=== PATIENT | female | born 2000 | race African-American/Black ===

== ENCOUNTER 2021-09-17 10:41 | Outpatient (CLI) | payer OTHER, SELFPAY ==
--- NOTE | ~2021-09-17 | XR_ITS ---
EXAMINATION: XR abdomen obstructive series DATE: 09/17/2021 11:09 INDICATION: 3 years of chronic burning sensation in the stomach and chest TECHNIQUE: Frontal supine and upright views of the abdomen were obtained. COMPARISON: None. FINDINGS: Moderate amount of gas and stool scattered throughout the colon. No dilated gas-filled loops of bowel to suggest obstruction. No free intraperitoneal gas. Visualized lung bases are clear. Mild lumbar levocurvature. IMPRESSION: 1. Normal bowel gas pattern with no free intraperitoneal gas or dilated gas-filled loops of bowel to suggest obstruction. Reviewed, dictated and finalized at location B. IMPRESSION: 1. Normal bowel gas pattern with no free intraperitoneal gas or dilated gas-fi lled loops of bowel to suggest obstruction.
--- NOTE | ~2021-09-17 | XR_ITS ---
EXAMINATION: XR chest 2V DATE: 09/17/2021 11:09 INDICATION: 3 years of chronic burning sensation in stomach and chest TECHNIQUE: PA and lateral views of the chest were obtained. COMPARISON: None FINDINGS: The lungs are clear with no focal airspace opacities, pulmonary edema, pleural effusion or pneumothor ax. The cardiomediastinal silhouette is normal. Mild thoracolumbar dextrocurvature. IMPRESSION: 1. No acute cardiopulmonary disease. Reviewed, dictated and finalized at location B.
== END 2021-09-17 10:42 | disposition home or self-care (01) ==
PROVIDERS: Visit Provider Nurse Practitioner Adult Health
DX: R10.0 Acute abdomen (principal)
CPT/HCPCS: 71046; 74019

== ENCOUNTER 2025-02-02 15:34 | Outpatient (CLI) | payer OTHER, SELFPAY ==
--- OUTSIDE RECORDS SUMMARY | 2009-04-15 02:30 | XMS_ITS | Continuity of Care Document ---
Author Organization [facility] Address [address] [place] [address] Phone Care Team Providers Care Clinical Specialist Name Role Phone Brito OD, Gage Unavailable Unavailable Procedures Procedure Date Eye Exam & Treatment Refraction Eye Exam & Treatment Refraction Eye Exam & Treatment No Charge Glasses Check Eye Exam, New Patient Advance Directives Directive Yes / No Effective Date File Name No Information Encounters Encounter Description Practice Location Reason(s) For Visit Diagnoses Date Provider Providers Copied on Encounter [facility], [address] [place] [address] [address], [place], [place], [id number], [place] tel:[phone] [facility] [place] No Information 6-201 0 Brito OD Gage. [address] [facility] , [address], [place], [address], [place]. tel:[phone] [facility], [address] [place] [address] [address], [place], [place], [id number], [place] tel:[phone] SEC [facility] No Information 6-200 9 Brito OD Gage. [address] [facility] , [address], [place], [address], [place]. tel:[phone] [facility], [address] [place] [address] [address], [place], [place], [id number], [place] tel:[phone] [facility] [place] No Information 5-200 8 Brito OD Gage. [facility] , [address], [place], [place], [facility], . tel:[phone] [facility], [address], [place], [place], [id number], tel:[phone] [facility] No Information 0-200 7 Brito OD Gage. [facility] , [address], [place], [address], . tel:[phone] [facility], [address], [place], [place], [id number], tel:[phone] [facility] No Information 7-200 7 Brito OD Gage. [address] [place] [address] , [address], [place], [address], . tel:[phone] Family History Family Member Type Diagnosis Age At Onset No Information Payers Payer name Insurance type Covered alliance party ID Authoriza tiyoni(s) Medicaid [facility] [id number] Social History Type Description Quantity Date Captured Comments Sex Female Smoking Status No Information Chief Complaint And Reason For Visit No Information Reason For Referral Reason For Referral No Information History Of Present Illness Encounter Date Complaint History Of Prese nt Illness No Information Functional Status Date Functional Assessmen t No Information Instructions Date Instruction Additional Infor mation No Information Assessments Type Assessment Date No Information Patient Care Teams Name Effective Dates (start - stop) Status Members No Information
--- NOTE | ~2025-02-02 | XR_ITS ---
EXAMINATION: XR_KNEE1-2VLT_CR, 02/02/2025 15:47 PHYSICIAN PRACTICE MANAGER HISTORY: pain in knees X 6 MONTHS COMPARISON: No comparisons available. Findings: No acute fracture or malalignment. No significant degenerative changes. Soft tissues unremarkable. Impression: No acute fracture or malalignment. Reviewed, dictated and finalized at location P. ICIAN PRACTICE MANAGER Impression: No acute fracture or malalignment.
--- NOTE | ~2025-02-02 | XR_ITS ---
EXAMINATION: XR_KNEE1-2VRT_CR, 02/02/2025 15:47 TORCH SOLDERER HISTORY: pain in knees COMPARISON: No comparisons available. Findings: No acute fracture or malalignment. No significant degenerative changes. Soft tissues unremarkable. Impression: No acute fracture or malalignment. Reviewed, dictated and finalized at location P. H SOLDERER Impression: No acute fracture or malalignment.
--- OUTSIDE RECORDS SUMMARY | 2025-02-03 14:59 | XMS_ITS | Clinical Summary ---
Author Organization [facility] Address [address] [facility] [place] [address] Care Team Providers Care Sales Hunter Name Role Phone Unavailable Primary Care Provider Unavailabl e Source Comments [facility],non-owned Affiliates and Associated Physician Practices is amultiple site organization consisting of ambulatory clinics and hospital sitesin [place], [place], [place] and [place]. This disclosure is being madepursuant to the Care Everywhere program and may not contain all information available regarding this patient. Last updated 17.[facility] Allergies No known active allergies Medications * Be aware that medications may not be up to date on this document. Alwaysverify current medications with the patient. methylphenidate CR (CONCERTA) 54 MG tablet Take 54 mg by mouth every morning. Active Active Problems Problem Noted Date Diagnosed Date Acquired pes planus of both feet 10/08/2010 Overview (08/22/2014): Closed fracture of part of humerus 09/01/2009 Overview (12/29/2014): Social History Tobacco Use Types Packs/Day Years Used Date Smoking Tobacco: Passive Smo ke Exposure - Never Smoker Smokeless Tobacco: Never Alcohol Use Standard Drinks/Week Comments No 0 (1 standard drink = 0.6 oz pur e alcohol) Comments No Sex and Gender Information Value Date Recorded Sex Assigned at Not on file Legal Sex Female 5:45 AM CHILD NUTRITION DIRECTOR Gender Identity Not on file Sexual Orientation Not on file Last Filed Vital Signs Vital Sign Reading Time Taken Comments Blood Pressure 102/76 03/02/2018 10:10 PM CHILD NUTRITION DIRECTOR Pulse 72 03/02/2018 10:10 PM CHILD NUTRITION DIRECTOR Temperature 36.8 C (98.3 F) 03/02/2018 10:10 PM CHILD NUTRITION DIRECTOR Respiratory Rate 18 03/02/2018 10:10 PM CHILD NUTRITION DIRECTOR Oxygen Saturation - - Inhaled Oxygen Concentration - - Weight - - Height - - Body Mass Index - - Plan of Treatment Health Maintenance Due Date Last Done Comments HIV SCREENING 2015 HPV VACCINE (1 - 3-dose series) 2015 CHLAMYDIA/GONORRHEA SCREENING 2016 HEPATITIS C SCREENING 02/25/2018 DTAP/TDAP/TD VACCINES (1 - Tdap) 2019 HEPATITIS B VACCINE (1 of 3 - 19+ 3-dose series) 2019 DEPRESSION SCREENING 03/31/2024 COVID-19 VACCINE (1 - 2023-2 5 season) 2024 INFLUENZA VACCINE (#1) 2024 ZOSTER VACCINE (1 of 2) 2050 HIB VACCINE Aged Out No longer eligi ble based on patient's age to complete this topic MENINGOCOCCAL (Group B) VACC INE SHARED DECISION-MAKING Aged Out No longer eligibl e based on patient's age to complete this topic MENINGOCOCCAL GROUPS A/C/Y/W VACCINE Aged Out No longer eligible b ased on patient's age to complete this topic PNEUMOCOCCAL VACCINE Aged Out No long er eligible based on patient's age to complete this topic Insurance [facility] [address] [place] [address] MEDICAID - OUT OF STATE
--- OUTSIDE RECORDS SUMMARY | 2025-02-03 14:59 | XMS_ITS | Clinical Summary ---
Author Organization [facility] Address [address], [facility] [address] [place] [address] Phone Care Team Providers Care Nuclear Reactor Technician Name Role Phone Layton Waldrop Primary Care Provider [phone] Saleem Mac MD Unavailable [phone] Allergies No known active allergies Medications omeprazole (PriLOSEC) 20 MG CAPSULE DELAYED RELEASE Take 1 Capsule by mouth. 09/29/2024 Active Amoxicillin 500 MG Tablet Take 2 Tablets by mouth every 12 hours. 09/29/2024 Active amoxicillin-cla vulanate (AUGMENTIN) 875-125 MG Tablet take 1 tablet by mouth twice daily for 7 days 09/21/2024 Active clarithromycin (BIAXIN) 500 MG Tablet TAKE 1 TABLET BY MOUTH EVERY 12 HOURS FOR 14 DAYS 09/29/2024 Active ferrous sulfate 325 (65 Fe) MG Tablet Take 1 Tablet by mouth daily. 30 Tablet 1 10/15/2024 Active Active Problems No known active problems Family History Medical History Relation Name Comments Diabetes Father Relation Name Status Comments Brother Alive Father Mother Alive Sister Alive Social History Tobacco Use Types Packs/Day Years Used Date Smoking Tobacco: Never Smokeless Tobacco: Never Tobacco Cessation:Counseling Given: Not Answered Alcohol Use Standard Drinks/Week Comments Not Currently 0 (1 standard drink = 0.6 oz pur e alcohol) 2 drinks every 4-5 months Comments No Sex and Gender Information Value Date Recorded Sex Assigned at Not on file Legal Sex Female 1:37 PM CDT Gender Identity Not on file Sexual Orientation Not on file Last Filed Vital Signs Vital Sign Reading Time Taken Comments Blood Pressure 100/62 10/15/2024 1:10 PM CDT Pulse 74 10/15/2024 1:10 PM CDT Temperature 36.7 C (98 F) 10/15/2024 1:10 PM CDT Respiratory Rate 20 10/15/2024 1:10 PM CDT Oxygen Saturation 99% 10/15/2024 1:10 PM CDT Inhaled Oxygen Concentration - - Weight 70.7 kg (155 lb 12.8 oz) 10/15/2024 1:10 PM CDT Height 170.2 cm (5' 7) 10/15/2024 1:10 PM CDT Body Mass Index 24.4 10/15/2024 1:10 PM CDT Plan of Treatment Health Maintenance Due Date Last Done Comments Hepatitis C Virus (HCV) Screening 2000 Pap Smear 2021 Influenza Immunization (#1) 2024 SARS-COV-2 Immunization ( season) 2024 Respiratory Syncytial Virus (RSV) Immunization (Adult) (1 - 1-dose 75+ series) 2075 Hepatitis B Immunization Completed 001, 2000, 2000 Pneumococcal Immunization Combined Aged Out 06/01/2001, 2000, 2000, Additional history exists No longer eligible based on patient's age to complete this topic TdaP Immunization Completed 09/26/2011 Human Papillomavirus (HPV) Immunization Completed 12/28/2013, 11/02/2012, 09/26/2011 Meningococcal Immunization (ACWY) Completed 08/18/2017, 09/26/2011 Rotavirus Immunization Aged Out No lo nger eligible based on patient's age to complete this topic Insurance MEDICAID [facility] Care Teams Nuclear Reactor Technician Relationship Specialty Start Date End Date Layton Waldrop [address] [address] PCP - General Family Medicine 09/30/24 Saleem Mac MD [address] [address] [place] [id number] Consulting Physician Oncology 09/30/24
--- OUTSIDE RECORDS SUMMARY | 2025-02-03 14:59 | XMS_ITS | Patient Health Record ---
Author Organization [facility] Address [address] [place] [address] Support Name Relationship Address Phone Cameron Raghav Guarantor Unknown [phone] Allergies No Known Allergies Reason For Referral No Information Medications Medication SIG (Take, Route, Frequency, Duration) Notes Start Date End Date Status Hair Skin & Nails Advanced - as directed Orally Active Omeprazole 20 MG 1 capsule 30 minutes before morning meal Orally Once a day Active hydrOXYzine HCl 25 MG 1 tablet as needed Orally twice a day as needed; Duration: 30 days Active Clarithromycin ER 500 MG 2 tablets with food Orally Once a day Not-Taking Strattera 25 MG 1 capsule Orally onc e a day; Duration: 30 days 01/21/2023 Active busPIRone HCl 7.5 MG 1 tablet Orally Twi ce a day; Duration: 30 days 01/21/2023 Active Social History Tobacco Use: Social History Observation Description Date Details (start date - stop date) Unknown Dont use, Tobacco Use/Smoking Question Answer Notes Are you a Uses tobacco in other forms Additional Findings: Tobacco User e-Cigarette Problems Problem Type SNOMED Code ICD Code Onset Dates Problem Status W/U Status Risk Notes Problem Anxiety (18251760) Anxiety (F41.9) Active confirmed Problem Anger reaction (353902187) Anger reaction (R45.4) Active confirmed Problem Depressed mood (947680837) Depressed mood (F32.9) Active confirmed Problem Impaired concentration (2192000584) Impaired concentration (R41.840) Active confirmed Plan Of Treatment No Information Insurance Providers Payer Name Payer Address Payer Phone Subscriber Number Group Number Insured Name Patient Relationship to Insured Coverage Start Date Coverage End Date [facility] Att Claims Department [address] [facility] [place] [address] [phone] [facility] [id number] Raghav Barnes Self - patient is the insured 3 [facility] Attn Claims Department [address] [place] [address] [phone] [id number] Raghav Barnes Self - patient is the insured 3 Medical (General) History Medical History History ICD Code attention deficit hyperactivity disorder Stomach Ulcers
== END 2025-02-02 15:35 | disposition home or self-care (01) ==
PROVIDERS: PCP Emergency Medicine; Visit Provider Emergency Medicine
DX: M25.561 Pain in right knee (principal); M25.562 Pain in left knee
CPT/HCPCS: 73560